=== PATIENT | female | born 1995 | race Caucasian/White ===

== ENCOUNTER 2024-10-06 13:39 | Emergency (ER) | payer SELFPAY ==
[2024-10-06 13:52] VITALS: BP 138/94
--- NOTE | 2024-10-06 16:35 | ED.GENMED ---
History of Present Illness
General
Chief Complaint: Crisis Evaluation
Source: patient
Exam Limitations: none
Time Seen by Provider: 10/06/24 16:20
History of Present Illness
History of Present Illness:
28yoF with no significant past medical history presenting with her mother for psychiatric evaluation. Patient has dealt with depression for a large portion of her life and has a lot of unresolved trauma. Patient has been dealing with a lot of
stress recently Her daughter in March 2024 and she lost her job in April of this year. She recently was evicted from her apartment. She stayed with her mother but otherwise does not know where she will be sleeping. She denies
any suicidal ideations or plan. Patient states she is in need of psychiatric help and believes she needs to go to inpatient treatment. She has never been in treatment before and does not currently see a therapist. She has never been on any
medications in the past.
Phy Exam
General Physical Exam
General Presentation: well appearing and no apparent distress
General Skin: warm and dry
General Habitus: normal
General Mental: alert
ENT Exam
ENT Exam: normocephalic
Pulmonary Exam
Pulmonary Exam: no respiratory distress
Neurological Exam
Neurological Exam: alert
[place] Coma Scale
Eye Opening: Spontaneous
Verbal Response: Oriented
Motor Response: Obeys Commands
GCS Total Score: 15
Psychiatric Exam
Psychiatric Exam: depressed and other (Depressed mood. Cooperative during assessment. No SI/HI. No signs of psychosis.)
Course
Orders/Labs/Results
Orders:
Orders
10/06/24 16:22
Crisis Consult Urgent
Reason for Consult: wants mental health resources
Comment: denies SI
Vital Signs
Initial and Last Documented VS:
Initial Vital Signs
Temp Pulse BP Pulse Ox
98.8 F 100 138/94 97
10/06/24 13:52 10/06/24 13:52 10/06/24 13:52 10/06/24 13:52
Last Documented Vital Signs
Temp Pulse Resp BP Pulse Ox
98.8 F 94 20 126/73 99
10/06/24 13:52 10/06/24 18:10 10/06/24 18:10 10/06/24 18:10 10/06/24 18:10
MDM/Problems Addressed
Differential Diagnosis Includes:
28yoF here for psych eval. C/o depression and situational stress. Recently lost her job and apartment and her child last year. Denies SI/HI, just wants help. Not currently on medications. VSS. Patient medically cleared for crisis
evaluation.
*Pulse Oximetry
SaO2: 97
Oxygen Mode of Delivery: Room air
Patient hypoxic: no (99%)
*Critical Care Note
Total Time (30-74mins, 75-104mins- exclusive of procedures): Not Applicable
Update Note
Update Note:
Patient evaluated by crisis. Plan is for an outpatient partial program. Resources provided and patient advised to return to the ED with any suicidal thoughts/plans.
ED Attending Note
-
Portions of this chart may have been created with voice recognition software.� Occasional wrong word or��sound alike� substitutions may have occurred due to the inherent limitations of voice recognition software.
Discharge Plan
Departure
Patient Disposition: Home (Routine Discharge)
Date of Disposition: 10/06/24
Time of Disposition: 17:47
Patient with high blood pressure during this ER visit?: No
Discharge Problem:
Encounter for psychiatric assessment
Instructions: Depression, Adult (DC)
Referrals:
[facility] [Provider Group]
NONE,* [Family Provider, Internal Medicine]
Activity Restrictions/Additional Instructions:
Please follow-up with the outpatient mental health resources provided. Return to the ER with any worsening symptoms or suicidal thoughts.
Interventions
Interventions:
*Risk Screen - Suicide Last Done: 10/06/24 13:39
*General Assessment Last Done: 10/06/24 16:23
*Neglect/Abuse Screening Last Done: 10/06/24 13:56
*ED- Fall Risk Assessment Last Done: 10/06/24 16:23
*ED COVID-19 Vaccine History Last Done: 10/06/24 16:23
*Nursing Disposition Last Done: 10/06/24 18:29
ED-Psychological Assessment Last Done: 10/06/24 16:23
Discharge Date and Time
Discharge Date/Time: 10/06/24 18:15
Print Language: SAMMARINESE
[2024-10-06 18:10] VITALS: BP 126/73
== END 2024-10-06 18:15 | disposition home or self-care (01) ==
LOC: EMR 13:39
PROVIDERS: EMERGENCY PHYSICIAN Student in an Organized Health Care Education/Training Program
DX: F32.A Depression, unspecified (principal); Z56.0 Unemployment, unspecified; Z63.4 Disappearance and death of family member; Z59.89 Other problems related to housing and economic circumstances
CPT/HCPCS: 99281